=== PATIENT | male | born 1975 | race Caucasian/White ===

== ENCOUNTER 2020-04-05 07:33 | Observation (INO) | payer OTHER ==
[~2020-04-05] VITALS: Ht 185.4 cm; Wt 116.2 kg
[~2020-04-05 07:33] MED LIST: IBUP800 PO; OXYACE5T PO
[2020-04-05 08:13] LABS: BASOPHILS ABSOLUTE AUTO 0.06 K/mm3 (0.00-0.23); BASOPHILS PERCENT AUTO 1 % (0-2); EOSINOPHILS ABSOLUTE AUTO 0.19 K/mm3 (0.00-0.68); EOSINOPHILS PERCENT AUTO 2 % (0-6); Hematocrit 50.8 % (37.0-53.0); Hemoglobin 16.3 g/dL (13.5-17.5); IMMATURE GRAN ABSOLUTE AUTO 0.08 K/mm3 (0.00-0.10); IMMATURE GRAN PERCENT AUTO 1 % (0-1); LYMPHOCYTES PERCENT AUTO 43 % (21-46); MONOCYTES ABSOLUTE AUTO 0.86 K/mm3 (0.16-1.47); MONOCYTES PERCENT AUTO 10 % (4-13); Mean Corpuscular HGB 33.1 pg (26.0-34.0); Mean Corpuscular HGB Conc 32.1 g/dL (31.5-36.5); Mean Corpuscular Volume 103 fL (80-100); NEUTROPHILS ABSOLUTE AUTO 3.99 K/mm3 (1.96-9.15); NEUTROPHILS PERCENT AUTO 44 % (41-73); Platelet Count 176 K/mm3 (150-400); RDW Coefficient Variation 13.5 % (11.7-14.2); RDW Standard Deviation 52.1 fL (35.1-46.3); Red Blood Cell Count 4.92 M/mm3 (4.30-5.90); White Blood Cell Count 9.08 K/mm3 (4.00-11.30)
[2020-04-05 08:35] LABS: Troponin I <0.015 ng/mL (0.000-0.040)
[2020-04-05 08:36] LABS: Alanine Aminotransfer (ALT/SGP 34 U/L (12-78); Albumin, Blood 3.9 g/dL (3.4-5.0); Albumin/Globulin Ratio 1.1 (0.8-1.8); Alk Phos 70 U/L (50-136); Anion Gap 6 mmol/L (6-16); Aspartate Aminotrans (AST/SGOT 28 U/L (12-37); Bilirubin, Total 0.5 mg/dL (0.1-1.0); Blood Urea Nitrogen 21 mg/dL (8-24); Bun/Creatinine Ratio 25.4 (12.0-20.0); CO2, Blood 23 mmol/L (21-32); Chloride, Blood 108 mmol/L (98-108); Creatinine, Blood 0.83 mg/dL (0.60-1.20); Globulin, Blood 3.6 g/dL (2.2-4.0); Glomerular Filtration Rate >60 (60-); Glucose, Blood 114 mg/dL (70-99); Sodium, Blood 137 mmol/L (136-145); Total Protein, Blood 7.5 g/dL (6.4-8.2)
--- NOTE | 2020-04-05 17:19 | NUR ---
SHIFT NOTE PT ARRIVED THIS AFTERNOON FROM THE ER WITH CO HIGH RISK CP. PT IS RESTING CP FREE UPON ARRIVAL, NADN, DENIES SOB. PT TALKING IN FULL SENTENCES. NO SKIN ISSUES NOTED. STS THAT HE DOES NOT HAVE ANY HX OF SIMILAR PAIN UNTIL THE LAST MONTH WHERE HE HAS HAD CP X3 IN THE LAST MONTH. PT STS THAT NOTHING SEEMS TO MAKE THE PAIN BETTER OR WORSE OVER THE LAST MONTH. VSS. LS CLEAR T/O. STS HE IS A PACK A DAY SMOKER AND DRINKS 6 BEERS PER DAY. PT REFUSE NICOTENE PATCH IN THE ER.
--- NOTE | 2020-04-06 01:59 | NUR ---
04/05/201944 PT ADVISED NPO STATUS AFTER MIDNIGHT FOR POSSIBLE ANGIOGRAM AM; PT ALSO ENCOURAGED TO NOT LEAVE AMA HE VOICED HE HAD THOSE THOUGHTS EARLIER TODAY, HOWEVER; HE DESIRES TO FIND OUT ANSWERS WHY CHEST PAIN OCCURS PAST MONTH; DENIES CHEST PAIN OR NAUSEA.
[2020-04-06 04:10] LABS: BASOPHILS ABSOLUTE AUTO 0.06 K/mm3 (0.00-0.23); BASOPHILS PERCENT AUTO 1 % (0-2); EOSINOPHILS ABSOLUTE AUTO 0.23 K/mm3 (0.00-0.68); EOSINOPHILS PERCENT AUTO 3 % (0-6); Hematocrit 43.5 % (37.0-53.0); Hemoglobin 14.2 g/dL (13.5-17.5); IMMATURE GRAN ABSOLUTE AUTO 0.06 K/mm3 (0.00-0.10); IMMATURE GRAN PERCENT AUTO 1 % (0-1); LYMPHOCYTES ABSOLUTE AUTO 3.21 K/mm3 (0.84-5.20); LYMPHOCYTES PERCENT AUTO 43 % (21-46); MONOCYTES ABSOLUTE AUTO 0.79 K/mm3 (0.16-1.47); MONOCYTES PERCENT AUTO 11 % (4-13); Mean Corpuscular HGB 33.4 pg (26.0-34.0); Mean Corpuscular HGB Conc 32.6 g/dL (31.5-36.5); Mean Corpuscular Volume 102 fL (80-100); NEUTROPHILS ABSOLUTE AUTO 3.13 K/mm3 (1.96-9.15); NEUTROPHILS PERCENT AUTO 42 % (41-73); Platelet Count 176 K/mm3 (150-400); RDW Coefficient Variation 13.5 % (11.7-14.2); RDW Standard Deviation 51.4 fL (35.1-46.3); Red Blood Cell Count 4.25 M/mm3 (4.30-5.90); White Blood Cell Count 7.48 K/mm3 (4.00-11.30)
--- NOTE | 2020-04-06 04:20 | NUR ---
SHIFT SUMMARY: 45 Y/O MALE RESTED COMFORTABLY ALL SHIFT; NPO SINCE MIDNIGHT FOR POSSIBLE ANGIOGRAM THIS AM; DENIES CHEST PAIN, SOB OR NAUSEA; HAPPY AND COOPERATIVE; TELEMETRY REFLECTS SINUS BRADYCARDIA WITH HEART RATE 56; BED LOW POSITION WITH CALL LIGHT AT SIDE.
[2020-04-06 04:28] LABS: Anion Gap 3 mmol/L (6-16); Blood Urea Nitrogen 18 mg/dL (8-24); Bun/Creatinine Ratio 17.6 (12.0-20.0); CO2, Blood 29 mmol/L (21-32); Calcium, Blood 8.9 mg/dL (8.5-10.1); Chloride, Blood 106 mmol/L (98-108); Creatinine, Blood 1.02 mg/dL (0.60-1.20); Glomerular Filtration Rate >60 (60-); Glucose, Blood 97 mg/dL (70-99); Sodium, Blood 138 mmol/L (136-145)
--- NOTE | 2020-04-06 08:00 | NUR ---
AM ASSESSMENT: Pt up ambulating in room. Denies pain. States that he is feeling good and that he is ready to go home. Pt knows that he is NPO for possible procedure today. LS clear. HR reg. BT positive. Denies needs. Pt seems slightly anxious about procedure and going home. Understands need to stay until after CTA is completed. Call light in reach. Stable at this time. Will monitor.
--- NOTE | 2020-04-06 10:20 | NUR ---
TO CT PT ESCORTED TO CT. PT TOLERATED SCAN WELL, AND THERE WERE NO ISSUES. PATIENT DID NOT MEET ANY PARAMETERS DURING SCAN FOR NTG OR METOPROLOL ADMINISTRATION. RETURNED TO PCU, REPORTED OFF TO PT'S PRIMARY RN ALISON.
[2020-04-06] MEDS ORDERED: ATOR20 PO (16:42)
[2020-04-06] MEDS ORDERED: Aspir 8181 MG PO (16:42)
[2020-04-06] MEDS ORDERED: METO25 PO (16:43)
[2020-04-06] MEDS ORDERED: NITR.4SL SL (16:45)
--- NOTE | 2020-04-06 17:00 | NUR ---
DISCHARGE: Pt was given verbal and written discharge instructions. RX were called into [facility]. Pt Denies questions or concerns. IV's were discontinued and caths intact. Pt ambulated out with RN. Stable at time of discharge.
== END 2020-04-06 17:11 | disposition home or self-care (01) ==
LOC: ER 07:33 → ERHOLD 09:33 → PCU 09:33
PROVIDERS: Emergency Medicine; Nurse Practitioner Acute Care; ADMIT Internal Medicine
DX: R07.89 Other chest pain (principal); I10 Essential (primary) hypertension; F10.20 Alcohol dependence, uncomplicated; E66.9 Obesity, unspecified; I25.10 Atherosclerotic heart disease of native coronary artery without angina pectoris; Z79.82 Long term (current) use of aspirin; F17.210 Nicotine dependence, cigarettes, uncomplicated; Z66 Do not resuscitate; Z68.31 Body mass index [BMI] 31.0-31.9, adult; Y90.9 Presence of alcohol in blood, level not specified
CPT/HCPCS: 36415; 71045; 75574; 80048; 80053; 83690; 84484; 85025; 93005; 93010; 99285-25; A9270-GY; G0378; Q9967